=== PATIENT | female | born 1980 | race Asian ===

== ENCOUNTER 2018-09-28 07:56 | Emergency (ER) | payer OTHER ==
[~2018-09-28] VITALS: Ht 154.9 cm; Wt 61.0 kg
[2018-09-28] MEDS ORDERED: ACETAMINOPHEN 500MG TABLET PO ONE (10:00)
[2018-09-28 10:52] VITALS: BP 152/92
== END 2018-09-28 10:56 | disposition home or self-care (01) ==
LOC: ER 08:24
DX: R10.9 Unspecified abdominal pain (principal); I10 Essential (primary) hypertension; V43.52XA Car driver injured in collision with other type car in traffic accident, initial encounter; Y93.9 Activity, unspecified; Y92.410 Unspecified street and highway as the place of occurrence of the external cause
CPT/HCPCS: 99283